=== PATIENT | female | born 1960 | race Caucasian/White ===

== ENCOUNTER → 2024-07-28 13:17 | Outpatient (REF) | payer OTHER, SELFPAY | LOC: RAD 13:17 | PROVIDERS: ATTENDING PHYSICIAN Nuclear Medicine Nuclear Cardiology; FAMILY PHYSICIAN Student in an Organized Health Care Education/Training Program | DX: R06.02 Shortness of breath (principal); I71.21 Aneurysm of the ascending aorta, without rupture; Q25.49 Other congenital malformations of aorta | CPT/HCPCS: 71275; 74175; Q9967 ==

== ENCOUNTER → 2024-08-11 13:42 | Outpatient (REF) | payer OTHER, SELFPAY | LOC: RCS 13:42 | PROVIDERS: ATTENDING PHYSICIAN Nuclear Medicine Nuclear Cardiology; FAMILY PHYSICIAN Student in an Organized Health Care Education/Training Program | DX: R06.02 Shortness of breath (principal); I71.21 Aneurysm of the ascending aorta, without rupture; Q25.49 Other congenital malformations of aorta | CPT/HCPCS: 93306 ==